=== PATIENT | male | born 1960 | race African-American/Black ===

== ENCOUNTER 2020-03-15 18:03 | Emergency (ER) | payer MEDICAID, OTHER ==
[~2020-03-15] VITALS: Ht 175.3 cm; Wt 77.0 kg
[~2020-03-15 18:03] MED LIST: ZYPREXIA
[2020-03-15 19:51] LABS: BASOPHILS % 0.4 % (0.0-2.0); EOSINOPHILS % 0.6 % (0.0-5.0); HEMATOCRIT. 37.3 % (42.0-52.0); HEMOGLOBIN. 12.7 g/dL (14.0-18.0); LYMPHOCYTES % 8.2 % (20.0-50.0); MONOCYTES % 10.7 % (2.0-8.0); NEUTROPHILS % 80.1 % (40.0-76.0); PLATELET 172 x1000/uL (130-400)
[2020-03-15 19:58] LABS: CHLORIDE 109 mEq/L (98-107); PROTHROMBIN TIME 10.7 sec (9.6-11.0)
[2020-03-15 20:03] LABS: ETHANOL BLOOD < 10 mg/dL
[2020-03-15] MEDS ORDERED: CEFTRIAXONE 1 G PREMIX 50 ML IV ONE (20:45)
[2020-03-15 21:53] LABS: CLARITY URINE CLEAR (CLEAR); COLOR URINE YELLOW (YELLOW); KETONES URINE NEGATIVE (NEGATIVE); LEUKOCYTE ESTERASE URINE NEGATIVE (NEGATIVE); NITRITE URINE NEGATIVE (NEGATIVE); OCCULT BLOOD URINE NEGATIVE (NEGATIVE); PROTEIN URINE 1+ (NEGATIVE); SPECIFIC GRAVITY URINE 1.027 (1.005-1.030)
[2020-03-15 22:06] LABS: *AMPHETAMINES SCREEN URINE NEGATIVE (NEGATIVE); *BARBITURATES SCREEN URINE NEGATIVE (NEGATIVE); *BENZODIAZEPINES SCREEN URINE NEGATIVE (NEGATIVE); *COCAINE SCREEN URINE NEGATIVE (NEGATIVE)
[2020-03-15 22:07] LABS: CANNABINOID URINE SCREEN NEGATIVE (NEGATIVE); METHADONE URINE SCREEN NEGATIVE (NEGATIVE); OPIATES URINE SCREEN NEGATIVE (NEGATIVE); PHENCYCLIDINE URINE SCREEN NEGATIVE (NEGATIVE)
[2020-03-16] MEDS ORDERED: OLANZAPINE 10 MG/VIAL IM ONE (07:00)
[2020-03-16] MEDS ORDERED: HALOPERIDOL LACTATE 5MG/ML VIAL IM ONE ×2 (10:00→10:45)
[2020-03-17] MEDS ORDERED: OLANZAPINE 10 MG/VIAL IM ONE (08:30)
[2020-03-18 22:12] VITALS: BP 144/84
== END 2020-03-18 22:05 | disposition short-term general hospital (02) ==
LOC: ER 18:03
DX: S52.124A Nondisplaced fracture of head of right radius, initial encounter for closed fracture (principal); W57.XXXA Bitten or stung by nonvenomous insect and other nonvenomous arthropods, initial encounter; Y93.89 Activity, other specified; Y92.89 Other specified places as the place of occurrence of the external cause; Y99.8 Other external cause status
CPT/HCPCS: 36415; 70450; 73030; 73060; 73080; 73090; 73110; 80053; 80305; 80307; 80320; 80329; 81003; 82140; 84443; 85025; 85610; 93005; 96365; 96372; 99285; J0696; J1630; J3490; G0480